=== PATIENT | female | born 1960 | race Caucasian/White ===

== ENCOUNTER 2021-07-30 22:37 | Emergency (ER) | payer MEDICARE ==
[~2021-07-30] VITALS: Ht 152.4 cm; Wt 60.0 kg
[2021-07-31] VITALS: BP 108/51
== END 2021-07-31 01:15 | disposition home or self-care (01) ==
LOC: ED 22:45
DX: R55 Syncope and collapse (principal); E86.9 Volume depletion, unspecified; I95.9 Hypotension, unspecified; R11.0 Nausea; R53.1 Weakness; E03.9 Hypothyroidism, unspecified
CPT/HCPCS: 36415; 80053; 80320; 83690; 83735; 84436; 84443; 84484; 85025; 93005; 96361; 96365; 99284; J3411; J7030